=== PATIENT | male | born 1980 | race African-American/Black ===

== ENCOUNTER 2018-04-28 18:13 | Emergency (ER) | payer SELFPAY ==
[~2018-04-28] VITALS: Ht 182.9 cm; Wt 112.1 kg
[2018-04-28 18:16] VITALS: BP 152/93
== END 2018-04-28 18:54 | disposition home or self-care (01) ==
LOC: ED 18:35
DX: H00.021 Hordeolum internum right upper eyelid (principal); J30.2 Other seasonal allergic rhinitis; F17.200 Nicotine dependence, unspecified, uncomplicated
CPT/HCPCS: 99283

== ENCOUNTER 2018-06-22 13:01 | Emergency (ER) | payer SELFPAY ==
[~2018-06-22] VITALS: Ht 175.3 cm; Wt 111.0 kg
[2018-06-22 13:06] VITALS: BP 142/81
--- NOTE | 2018-06-22 13:32 | NUR ---
FROM LOBBY TO ROOM AT THIS TIME
[2018-06-22] MEDS ORDERED: KETOROLAC 30 MG/1 ML IM ONE (14:00)
--- NOTE | 2018-06-22 14:02 | NUR ---
PT HERE FOR INCREASED CP WITH ANXIETY ATTACK. PT REPORTS HE HAD SUDDEN CHEST PAIN AND REPORTS NO IMPROVEMENT WITH REST. PT HAS REPRODUCEABLE PAIN AT THIS TIME. PT `AT THIS TIME HAS MINIMAL PAIN AND IS THINKING MAY HAVE BEEN RELATED TO AN ANXIETY ATTACK. PT RESTING IN BED. AWAITING FURTHER ORDERS.
[2018-06-22] MEDS ORDERED: KETOROLAC 30 MG/1 ML ONE (14:30)
[2018-06-22] MEDS ORDERED: CYCLOBENZAPRINE 10 MG TABLET ONE (14:30)
[2018-06-22] MEDS ORDERED: CYCLOBENZAPRINE 10 MG TABLET PO ONE (14:30)
[2018-06-22 14:38] LABS: ALBUMIN 4.4 g/dL (3.4-5.0); ANION GAP 4 mmol/L (5-15); CALCIUM 9.2 mg/dL (8.5-10.1); CHLORIDE 104 mmol/L (98-107)
[2018-06-22 14:45] LABS: ALANINE AMINOTRANSFERASE 30 U/L (12-78); ALKALINE PHOSPHATASE 82 U/L (45-117); BILIRUBIN,TOTAL 1.1 mg/dL (0.2-1.0); CREATININE 1.25 mg/dL (0.7-1.3); TOTAL PROTEIN 8.4 g/dL (6.4-8.2); TROPONIN I < 0.015 ng/mL (0.000-0.045)
[2018-06-22 14:52] LABS: BASOPHILS # (AUTO) 0.03 x10^3/uL (0-0.1); BASOPHILS % (AUTO) 1 % (0-1); EOSINOPHILS # (AUTO) 0.15 x10^3/uL (0-0.4); EOSINOPHILS % (AUTO) 3 % (1-7); LYMPHOCYTES # (AUTO) 2.23 x10^3/uL (1-3.4); LYMPHOCYTES % (AUTO) 43 % (22-44); MD NO; MEAN CORPUSCULAR HEMOGLOBIN 28.5 pg (27.5-34.5); MEAN CORPUSCULAR HGB CONC 33.7 g/dL (33.2-36.2); MEAN CORPUSCULAR VOLUME 84.5 fL (81-97); MEAN PLATELET VOLUME 8.4 fL (7.4-10.4); MONOCYTES % (AUTO) 6 % (2-9); NEUTROPHILS # (AUTO) 2.49 x10^3/uL (1.8-6.8); NEUTROPHILS % (AUTO) 48 % (42-75); PLATELET COUNT 323 x10^3/uL (130-400); RED BLOOD COUNT 5.87 x10^6/uL (4.38-5.82); RED CELL DISTRIBUTION WIDTH 13.1 % (9.4-14.8)
--- NOTE | 2018-06-22 15:31 | NUR ---
Patient/Caregiver given discharge instructions and they have confirmed that they understand the instructions. Patient ambulatory with steady gait.
== END 2018-06-22 15:35 | disposition home or self-care (01) ==
LOC: ED 14:38
DX: M94.0 Chondrocostal junction syndrome [Tietze] (principal); R07.89 Other chest pain
CPT/HCPCS: 36415; 71046; 80053; 84484; 85025; 93005; 96372; 99284; J1885

== ENCOUNTER 2019-08-19 15:51 | Emergency (ER) | payer SELFPAY ==
[~2019-08-19] VITALS: Ht 182.9 cm; Wt 111.0 kg
--- NOTE | 2019-08-19 16:16 | NUR ---
PT C/O LEFT SIDE NECK, SHOULDER, ARM, MIDDLE FINGERS INTERMITTENT NUMBNESS, TINGLING. PT DENIES TRAUMA. PT CONNECTED TO MONITORING. CALL LIGHT IN REACH. MD AT BEDSIDE FOR ASSESSMENT.
--- NOTE | 2019-08-19 17:30 | NUR ---
PT BACK FROM IMAGING
[2019-08-19 17:31] VITALS: BP 142/87
--- NOTE | 2019-08-19 18:00 | NUR ---
ALL RESULTS ARE BACK AT THIS TIME. CHART UP FOR RECHECK.
--- NOTE | 2019-08-19 18:08 | NUR ---
MD AT BEDSIDE TO UPDATE PT ON POC.
== END 2019-08-19 18:18 | disposition home or self-care (01) ==
LOC: ED 16:26
DX: M50.31 Other cervical disc degeneration, high cervical region (principal)
CPT/HCPCS: 72050; 99283

== ENCOUNTER 2019-09-21 16:56 | Emergency (ER) | payer OTHER ==
[~2019-09-21] VITALS: Ht 182.9 cm; Wt 110.0 kg
--- NOTE | 2019-09-21 17:13 | NUR ---
THIS RN DID NOT TRIAGE THIS PATIENT. PATIENT WAS TRIAGED BY MANN Denis RN.
--- NOTE | 2019-09-21 18:42 | NUR ---
[employer] DESIGNER: PT TO ROOM FROM [facility]
[2019-09-21] MEDS ORDERED: LORA10TA75 PO (18:47)
[2019-09-21] MEDS ORDERED: MULT-297 PO (18:48)
--- NOTE | 2019-09-21 18:55 | NUR ---
PT REPORT FROM SCOT MONAHAN RN. PT CARE TO BE RESUMED.
--- NOTE | 2019-09-21 19:26 | NUR ---
PT IN CT
[2019-09-21 19:30] LABS: BASOPHILS # (AUTO) 0.05 x10^3/uL (0-0.1); BASOPHILS % (AUTO) 1 % (0-1); EOSINOPHILS # (AUTO) 0.37 x10^3/uL (0-0.4); EOSINOPHILS % (AUTO) 5 % (1-7); LYMPHOCYTES # (AUTO) 3.28 x10^3/uL (1-3.4); LYMPHOCYTES % (AUTO) 45 % (22-44); MD NO; MEAN CORPUSCULAR HEMOGLOBIN 28.2 pg (27.5-34.5); MEAN CORPUSCULAR HGB CONC 32.7 g/dL (33.2-36.2); MONOCYTES % (AUTO) 7 % (2-9); NEUTROPHILS # (AUTO) 3.04 x10^3/uL (1.8-6.8); NEUTROPHILS % (AUTO) 42 % (42-75); PLATELET COUNT 331 x10^3/uL (130-400); RED CELL DISTRIBUTION WIDTH 13.5 % (9.4-14.8)
[2019-09-21 19:37] LABS: ALBUMIN 3.9 g/dL (3.4-5.0); ANION GAP 6 mmol/L (5-15); CHLORIDE 106 mmol/L (98-107)
[2019-09-21 19:38] LABS: CREATININE 1.01 mg/dL (0.7-1.3)
[2019-09-21 19:57] LABS: MICROSCOPIC AUTO
[2019-09-21 20:21] VITALS: BP 110/62
--- NOTE | 2019-09-21 20:23 | NUR ---
CAROLYN HINTON AT BS
== END 2019-09-21 20:44 | disposition home or self-care (01) ==
LOC: ED 19:00
DX: K59.00 Constipation, unspecified (principal); K40.90 Unilateral inguinal hernia, without obstruction or gangrene, not specified as recurrent; R10.31 Right lower quadrant pain
CPT/HCPCS: 36415; 74176; 80048; 81001; 82040; 85025; 99284